=== PATIENT | male | born 1955 | race African-American/Black ===

== ENCOUNTER 2017-11-19 06:10 | Inpatient (IN) | payer BC, MEDICARE ==
[~2017-11-19] VITALS: Ht 177.8 cm; Wt 93.0 kg
[2017-11-19] VITALS: BP 104/57
[2017-11-19 06:51] LABS: BASOPHILS % 0.5 % (0.0-2.0); EOSINOPHILS % 2.9 % (0.0-5.0); HEMATOCRIT. 42.7 % (42.0-52.0); HEMOGLOBIN. 14.3 g/dL (14.0-18.0); LYMPHOCYTES % 33.8 % (20.0-50.0); MEAN CORPUSCULAR HEMOGLOBIN 27.2 pg (28.0-32.0); MEAN CORPUSCULAR VOLUME 81.1 fL (80.0-94.0); MONOCYTES % 11.4 % (2.0-8.0); NEUTROPHILS % 51.4 % (40.0-76.0); PLATELET 302 x1000/uL (130-400); RED BLOOD CELL COUNT 5.26 mill/uL (4.7-6.1); RED CELL DISTRIBUTION WIDTH 13.1 % (11.6-14.6)
[2017-11-19 06:59] LABS: INR 1.1; PROTHROMBIN TIME 11.3 sec (9.4-11.6)
[2017-11-19 07:26] LABS: CARBON DIOXIDE 26 mEq/L (21-32); CHLORIDE 104 mEq/L (98-107)
[2017-11-19 07:33] LABS: TROPONIN I < 0.02 ng/mL (0.00-0.04)
[2017-11-19] MEDS ORDERED: ONDANSETRON HCL 4MG/2ML VIAL IV ONE (07:45)
[2017-11-19] MEDS ORDERED: MORPHINE SULFATE 4 MG/ML CPJ (NOT FOR IM USE) IV ONE (07:45)
[2017-11-19] MEDS ORDERED: ASPIRIN 325MG EC TABLET PO ONE (07:45)
[2017-11-19] MEDS ORDERED: NA PHOS,M-B/NA PHOS,DI-BA ENEMA 118ML PR PRN (11:15)
[2017-11-19] MEDS ORDERED: HYDROCODONE/ACETAMINOPHEN 10/325MG TABLET PO PRN (11:15)
[2017-11-19] MEDS ORDERED: DIPHENHYDRAMINE 50MG/ML VIAL IV PRN (11:15)
[2017-11-19] MEDS ORDERED: ONDANSETRON HCL 4MG/2ML VIAL IV PRN (11:15)
[2017-11-19] MEDS ORDERED: GUAIFENESIN 200MG/10ML SUGAR FREE UDC PO PRN (11:15)
[2017-11-19] MEDS ORDERED: ACETAMINOPHEN 325MG TABLET PO PRN (11:15)
[2017-11-19] MEDS ORDERED: ACETAMINOPHEN 650MG/20.3ML UDC GT PRN (11:15)
[2017-11-19] MEDS ORDERED: CLONIDINE 0.1MG TABLET PO PRN (11:15)
[2017-11-19] MEDS ORDERED: ACETAMINOPHEN 650MG SUPP PR PRN (11:15)
[2017-11-19] MEDS ORDERED: MAGNESIUM/ALUMINUM HYDROXIDE/SIMETHICONE 30ML UDC PO PRN (11:15)
[2017-11-19] MEDS ORDERED: DOCUSATE SODIUM 100MG CAPSULE PO PRN (11:15)
[2017-11-19] MEDS ORDERED: IPRATROPIUM/ALBUTEROL 0.5-3(2.5)MG/3ML NEB INH PRN (11:15)
[2017-11-19] MEDS ORDERED: HYDROCODONE/ACETAMINOPHEN 5/325MG TABLET PO PRN (11:15)
[2017-11-19 13:43] LABS: CREATINE KINASE 211 IU/L (39-308); T4 FREE 0.89 ng/dL (0.76-1.46); TROPONIN I < 0.02 ng/mL (0.00-0.04)
[2017-11-19 13:48] LABS: CREATINE KINASE MB FRACTION 1.4 ng/mL (0.5-3.6)
[2017-11-19] MEDS ORDERED: SODIUM CHLORIDE 0.9% INJ 3ML FLUSH IVF SCH (14:00)
[2017-11-19 16:30] VITALS: BP 121/83
[2017-11-19 16:40] VITALS: BP 121/83
[2017-11-19 17:15] VITALS: BP 121/83
[2017-11-19] MEDS ORDERED: REGADENOSON 0.4 MG/5 ML IV NR (19:15)
[2017-11-19 23:35] LABS: CREATINE KINASE 169 IU/L (39-308); CREATINE KINASE MB FRACTION 0.8 ng/mL (0.5-3.6); TROPONIN I < 0.02 ng/mL (0.00-0.04)
[2017-11-20] VITALS: BP 104/57
[2017-11-20] MEDS: SODIUM CHLORIDE 0.9% 1,000 ML IV SCH ×2 (02:00→02:05)
[2017-11-20 03:48] VITALS: BP 102/61
[2017-11-20 07:35] LABS: BASOPHILS % 0.4 % (0.0-2.0); HEMATOCRIT. 44.5 % (42.0-52.0); HEMOGLOBIN. 15.3 g/dL (14.0-18.0); LYMPHOCYTES % 25.8 % (20.0-50.0); MEAN CORPUSCULAR HEMOGLOBIN 27.5 pg (28.0-32.0); MEAN CORPUSCULAR VOLUME 80.1 fL (80.0-94.0); MEAN PLATELET VOLUME 8.2 fl (7.4-10.4); MONOCYTES % 13.4 % (2.0-8.0); NEUTROPHILS % 58.4 % (40.0-76.0); PLATELET 294 x1000/uL (130-400); RED BLOOD CELL COUNT 5.56 mill/uL (4.7-6.1); RED CELL DISTRIBUTION WIDTH 13.3 % (11.6-14.6)
[2017-11-20 08:00] VITALS: BP 110/75
[2017-11-20 08:48] LABS: CARBON DIOXIDE 26 mEq/L (21-32); CHLORIDE 102 mEq/L (98-107); CREATINE KINASE MB FRACTION 0.7 ng/mL (0.5-3.6); HDL CHOLESTEROL 74 mg/dL (40-59); LDL CHOLESTEROL 119 mg/dL (5-100)
[2017-11-20 12:00] VITALS: BP 114/75
[2017-11-20 16:00] VITALS: BP 107/66
[2017-11-20 20:00] VITALS: BP 115/73
[2017-11-21] VITALS: BP 114/76
[2017-11-21 04:00] VITALS: BP 106/71
[2017-11-21 08:00] VITALS: BP 137/95
[2017-11-21 08:34] VITALS: BP 128/88
[2017-11-21] MEDS ORDERED: REGADENOSON 0.4 MG/5 ML IV ONE (08:52)
[2017-11-21] MEDS ORDERED: SODIUM CHLORIDE 0.9% 10ML VIAL ONE (12:30)
== END 2017-11-21 10:50 | disposition home or self-care (01) | DRG 313 ==
LOC: ER 06:10 → 5WST 07:54 → CMPBEDREQ 07:57 → ENRESERV 15:27
PROVIDERS: ADMIT Family Medicine; ATTEND Family Medicine
DX: R07.9 Chest pain, unspecified (principal); N17.9 Acute kidney failure, unspecified; I11.9 Hypertensive heart disease without heart failure; E11.9 Type 2 diabetes mellitus without complications; E66.9 Obesity, unspecified; E78.00 Pure hypercholesterolemia, unspecified; E78.5 Hyperlipidemia, unspecified; Z68.29 Body mass index [BMI] 29.0-29.9, adult
CPT/HCPCS: 36415; 71045; 78452; 80053; 80061; 82550; 82553; 83036; 83880; 84439; 84443; 84484; 85025; 85379; 85610; 93005; 93017; 93306; 96374; 96375; 99285; A4216; A9500; J2270; J2405; J2785; J7030

== ENCOUNTER 2019-01-15 11:01 | Emergency (ER) | payer MEDICARE, BC ==
[~2019-01-15] VITALS: Ht 177.8 cm; Wt 91.0 kg
[2019-01-15 14:46] LABS: BASOPHILS % 0.6 % (0.0-2.0); EOSINOPHILS % 1.4 % (0.0-5.0); HEMOGLOBIN. 15.8 g/dL (14.0-18.0); LYMPHOCYTES % 29.9 % (20.0-50.0); MEAN CORPUSCULAR HEMOGLOBIN 27.6 pg (28.0-32.0); MEAN CORPUSCULAR VOLUME 82.4 fL (80.0-94.0); MEAN PLATELET VOLUME 8.3 fl (7.4-10.4); MONOCYTES % 12.7 % (2.0-8.0); NEUTROPHILS % 55.4 % (40.0-76.0); PLATELET 257 x1000/uL (130-400); RED BLOOD CELL COUNT 5.71 mill/uL (4.7-6.1); RED CELL DISTRIBUTION WIDTH 13.6 % (11.6-14.6)
[2019-01-15] MEDS ORDERED: MAGNESIUM/ALUMINUM HYDROXIDE/SIMETHICONE 30ML UDC PO ONE (15:00)
[2019-01-15 15:03] LABS: INR 1.1; PROTHROMBIN TIME 11.3 sec (9.1-11.1)
[2019-01-15 15:06] LABS: CHLORIDE 103 mEq/L (98-107)
[2019-01-15 15:38] LABS: CLARITY URINE CLEAR (CLEAR); COLOR URINE YELLOW (YELLOW); KETONES URINE NEGATIVE (NEGATIVE); LEUKOCYTE ESTERASE URINE NEGATIVE (NEGATIVE); NITRITE URINE NEGATIVE (NEGATIVE); OCCULT BLOOD URINE TRACE (NEGATIVE); PH URINE 6.5 (4.5-8.0); PROTEIN URINE NEGATIVE (NEGATIVE); SPECIFIC GRAVITY URINE 1.021 (1.005-1.030); UROBILINOGEN URINE 0.2 E.U./dL (0.2-1.0)
[2019-01-15 16:18] VITALS: BP 138/76
== END 2019-01-15 16:19 | disposition home or self-care (01) ==
LOC: ER 11:01
DX: R07.89 Other chest pain (principal); I10 Essential (primary) hypertension; E78.00 Pure hypercholesterolemia, unspecified; F12.10 Cannabis abuse, uncomplicated
CPT/HCPCS: 36415; 71045; 83880; 84484; 93005; 99284

== ENCOUNTER 2019-09-06 15:54 | Emergency (ER) | payer OTHER, BC ==
[~2019-09-06] VITALS: Ht 177.8 cm; Wt 92.0 kg
[2019-09-06] MEDS ORDERED: KETOROLAC 30MG/ML VIAL IM ONE (22:30)
[2019-09-06] MEDS ORDERED: HYDROCODONE/ACETAMINOPHEN 5/325MG TABLET PO ONE (22:30)
[2019-09-06 23:53] VITALS: BP 164/90
== END 2019-09-06 23:55 | disposition home or self-care (01) ==
LOC: ER 17:09
DX: M79.672 Pain in left foot (principal); M72.2 Plantar fascial fibromatosis; I10 Essential (primary) hypertension; E78.5 Hyperlipidemia, unspecified
CPT/HCPCS: 73630; 96372; 99283; J1885

== ENCOUNTER 2023-06-01 14:24 | Emergency (ER) | payer OTHER ==
[~2023-06-01] VITALS: Ht 177.8 cm; Wt 90.0 kg
[2023-06-01 14:58] VITALS: TEMP 98.3; O2SAT 99
[2023-06-01] MEDS ORDERED: OXYCODONE HCL/ACETAMINOPHEN 5/325MG TABLET PO ONE (15:45)
[2023-06-01] MEDS ORDERED: ACET-2708 MT (16:20)
[2023-06-01 17:02] VITALS: BP 135/92; PULSE 100; RESP 20
== END 2023-06-01 17:11 | disposition home or self-care (01) ==
LOC: ER 14:40
DX: M25.562 Pain in left knee (principal); I10 Essential (primary) hypertension; E78.00 Pure hypercholesterolemia, unspecified
CPT/HCPCS: 73562; 99283